=== PATIENT | male | born 1960 | race Two or more races ===

== ENCOUNTER 2024-01-19 12:46 | Inpatient (IN) | payer OTHER ==
[~2024-01-19] VITALS: Ht 175.3 cm; Wt 99.2 kg
[2024-01-19] MEDS: THIAMINE HCL 100 MG TAB PO ONE (13:00)
[2024-01-19] MEDS: MULTIPLE VITAMIN TAB PO ONE (13:00)
[2024-01-19] MEDS: ACETAMINOPHEN 325 MG TAB PO ONE (13:00)
[2024-01-19] MEDS: MECLIZINE HCL 25 MG TAB PO ONE (13:00)
[2024-01-19 13:52] LABS: Basophils # (auto) 0.1 10 ^3/uL (0-0.2); Basophils % (auto) 0.6 % (0.0-2.0); Eosinophils # (auto) 0.4 10 ^3/uL (0-0.8); Eosinophils % (auto) 4.4 % (0.0-7.0); Hematocrit 44.9 % (41.0-53.0); Hemoglobin 15.3 g/dL (13.5-17.5); Lymphocytes # (auto) 1.3 10 ^3/uL (0.4-5.4); Lymphocytes % (auto) 14.7 % (10.0-50.0); Mean Corpuscular Hemoglobin 29.7 pg (28.0-32.0); Mean Corpuscular Volume 87.1 fL (80.0-100.0); Monocytes # (auto) 0.7 10 ^3/uL (0-1.3); Monocytes % (auto) 7.5 % (0.0-12.0); Neutrophils # (auto) 6.6 10 ^3/uL (1.6-8.6); Neutrophils % (auto) 72.8 % (37.0-80.0); Red Blood Cells 5.16 10^6/uL (4.5-5.90); Red Cell Distribution Width 14.4 % (11.8-14.3); White Blood Cell 9.1 10^3/uL (4.4-10.8)
[2024-01-19 14:00] LABS: INR 1.06 (0.9-1.15); Prothrombin Time 11.2 sec (9.3-11.8)
[2024-01-19] MEDS: SUMAtriptan SUCCINATE 6 MG/0.5 ML VL SC ONE (14:08)
[2024-01-19 14:09] LABS: Alanine Aminotransferase 47 U/L (7-40); Albumin 4.4 g/dL (3.2-4.8); Alkaline Phosphatase 154 U/L (46-116); Anion Gap 7 (5-15); Aspartate Aminotransferase 39 U/L (13-40); BUN/Creatinine Ratio 10.5 (10.0-20.0); Blood Urea Nitrogen 16 mg/dL (9-23); Calcium 9.7 mg/dL (8.7-10.4); Carbon Dioxide 27 mmol/L (20-30); Chloride 103 mmol/L (98-107); Glucose 116 mg/dL (74-106); Magnesium 1.9 mg/dL (1.6-2.6); Potassium 3.3 mmol/L (3.5-5.1); Sodium 137 mmol/L (136-145)
[2024-01-19] MEDS: SODIUM CHLORIDE 0.9% 2,000 ML IV ONE (14:09)
[2024-01-19 14:10] LABS: Bilirubin, Total 0.5 mg/dL (0.2-1.0); Total Protein 7.7 g/dL (5.7-8.2)
[2024-01-19] MEDS: IOHEXOL 350 MG/ML 100ML IJ ONE (14:23)
[2024-01-19 14:28] VITALS: PULSE 65; RESP 18; O2SAT 98
[2024-01-19] MEDS: diphenhdrAMINE HCL 50 MG/1 ML VL IV ONE (14:30)
[2024-01-19 15:30] VITALS: O2SAT 95
[2024-01-19] MEDS: ONDANSETRON HCL 4 MG/2 ML VIAL IV ONE (15:34)
[2024-01-19] MEDS: METOCLOPRAMIDE HCL 5MG/ml INJ 2ml VIAL IV ONE (15:34)
[2024-01-19] MEDS: cloNIDine HCL 0.1 MG TAB PO ONE (15:36)
[2024-01-19] MEDS: hydrALAZINE HCL 20 MG/ML VL IV ONE (15:37)
[2024-01-19] MEDS: LORazepam 2MG/ML-1ML VIAL IV ONE (16:15)
[2024-01-19] MEDS ORDERED: ACETAMINOPHEN 325 MG TAB PO PRN (17:00)
[2024-01-19] MEDS ORDERED: ONDANSETRON HCL 4 MG/2 ML VIAL IV PRN (17:00)
[2024-01-19] MEDS ORDERED: NITROGLYCERIN 0.4 MG SL TAB SL PRN (17:00)
[2024-01-19] MEDS ORDERED: MORPHINE SULFATE INJ 2 MG/ml SYRG IV PRN (17:00)
[2024-01-19] MEDS ORDERED: HYDROmorphone HCL 2 MG/ML VL/or syr IV PRN (17:00)
[2024-01-19] MEDS: PANTOPRAZOLE 40 MG/10 ML VIAL INJ IV SCH (17:30)
[2024-01-19] MEDS: METOPROLOL TARTRATE 25 MG TAB PO SCH (18:31)
[2024-01-19] MEDS: FUROSEMIDE 40 MG/4 ML VIAL IV SCH (18:33)
[2024-01-19 20:00] VITALS: PULSE 80; RESP 23; O2SAT 100
[2024-01-19] MEDS: hydrALAZINE HCL 20 MG/ML VL IV PRN (20:32)
[2024-01-19 21:46] LABS: Urine Bacteria FEW /hpf (None Seen); Urine Blood Negative /uL (Negative); Urine Clarity Clear (Clear); Urine Color Yellow (Yellow); Urine Protein, UAD 2+ (Negative); Urine Specific Gravity 1.015 (1.001-1.035); Urine Sperm PRESENT /hpf (None Seen); Urine Urobilinogen 2 mg/dL (Negative); Urine WBC 1 /hpf (0 - 3)
[2024-01-19] MEDS: SODIUM CHLOR 0.9% PF (SALINE LOCK) 10ML VIAL/SYR IV SCH (22:05)
[2024-01-19] MEDS ORDERED: AZITHROMYCIN 500MG/ 250ML 250 ML IV ONE (23:15)
[2024-01-19] MEDS: methylPREDNISolone SOD SUCC 125 MG/2 ML VL IV ONE (23:28)
[2024-01-19 23:35] LABS: Base Excess 1.6 mmol/L (-2.0-2.0)
[2024-01-19] MEDS: IPRATROPIUM BROM 0.5 MG/2.5ML INH SOL NEB PRN (23:36)
[2024-01-19] MEDS: ALBUTEROL SULF 2.5 MG/0.5ML(0.5%) NEB SOLN NEB PRN (23:37)
[2024-01-19] MEDS: POTASSIUM CHL 20MEQ/100ML 100 ML IV ONE (23:49)
[2024-01-19 23:54] VITALS: O2SAT 99
[2024-01-19 23:55] VITALS: BP 112/74; PULSE 80; RESP 22; TEMP 97.5; O2SAT 99
[2024-01-20] MEDS: DOXYCYCLINE 100MG/250ML 250 ML IV SCH (07:07)
[2024-01-20 07:41] VITALS: O2SAT 94
[2024-01-20] MEDS ORDERED: AZITHROMYCIN 500MG/ 250ML 250 ML IV SCH (10:00)
[2024-01-20] MEDS: THIAMINE HCL 100 MG TAB PO SCH (10:00)
[2024-01-20] MEDS: FOLIC ACID 1 MG TAB PO SCH (10:00)
[2024-01-20] MEDS ORDERED: ENOXAPARIN SOD 40 MG/0.4 ML SYRINGE SC SCH (10:00)
[2024-01-20 10:39] LABS: Basophils # (auto) 0 10 ^3/uL (0-0.2); Basophils % (auto) 0.2 % (0.0-2.0); Eosinophils # (auto) 0 10 ^3/uL (0-0.8); Hematocrit 48.4 % (41.0-53.0); Hemoglobin 16.1 g/dL (13.5-17.5); Lymphocytes # (auto) 0.6 10 ^3/uL (0.4-5.4); Lymphocytes % (auto) 8.7 % (10.0-50.0); Mean Corpuscular Hemoglobin 29.6 pg (28.0-32.0); Mean Corpuscular Hgb Conc. 33.3 g/dL (32.0-36.0); Mean Corpuscular Volume 88.7 fL (80.0-100.0); Monocytes # (auto) 0.1 10 ^3/uL (0-1.3); Monocytes % (auto) 1.7 % (0.0-12.0); Neutrophils # (auto) 6.1 10 ^3/uL (1.6-8.6); Neutrophils % (auto) 89.4 % (37.0-80.0); Red Blood Cells 5.46 10^6/uL (4.5-5.90); Red Cell Distribution Width 14.8 % (11.8-14.3); White Blood Cell 6.8 10^3/uL (4.4-10.8)
[2024-01-20 11:19] LABS: Alanine Aminotransferase 42 U/L (7-40); Albumin 4.2 g/dL (3.2-4.8); Alkaline Phosphatase 154 U/L (46-116); Anion Gap 7 (5-15); Aspartate Aminotransferase 34 U/L (13-40); BUN/Creatinine Ratio 8.2 (10.0-20.0); Blood Urea Nitrogen 13 mg/dL (9-23); Calcium 9.3 mg/dL (8.7-10.4); Carbon Dioxide 26 mmol/L (20-30); Chloride 103 mmol/L (98-107); Cholesterol 167 mg/dL (< 200); Glucose 151 mg/dL (74-106); HDL Cholesterol 59 mg/dL (40-59); LDL Cholesterol 103 mg/dL (< 100); Magnesium 1.9 mg/dL (1.6-2.6); Potassium 3.8 mmol/L (3.5-5.1); Sodium 136 mmol/L (136-145); Triglycerides 40 mg/dL (< 150)
[2024-01-20 11:20] LABS: Bilirubin, Total 0.5 mg/dL (0.2-1.0); Phosphorus 3.6 mg/dL (2.4-5.1)
[2024-01-20 11:41] LABS: Total Protein 7.7 g/dL (5.7-8.2)
[2024-01-20 11:42] VITALS: O2SAT 93
[2024-01-20 12:23] LABS: Amphetamine Screen, Urine Pos (NEGATIVE)
[2024-01-20 12:24] LABS: Barbiturate Scree,Urine Neg (NEGATIVE); Benzodiazephine Screen, Urine Neg (NEGATIVE); Cannabinoid Screen, Urine Neg (NEGATIVE); Cocaine Screen, Urine Neg (NEGATIVE); Opiate Scree,Urine Neg (NEGATIVE); Phencyclidine Screen, Urine Neg (NEGATIVE)
[2024-01-20] MEDS ORDERED: THIAMINE 100mg/ml INJ (200mg/2ml VIAL) IV ONE (14:15)
[2024-01-20] MEDS: THIAMINE IV ONE (17:18)
[2024-01-20] MEDS: SODIUM CHL 0.9% IV ONE (17:18)
[2024-01-20 19:20] VITALS: BP 141/74; PULSE 85; RESP 19; TEMP 98.2; O2SAT 92
[2024-01-20] MEDS ORDERED: DOXA1TAB41 PO (19:51)
[2024-01-20] MEDS ORDERED: FINA5TAB4 PO (19:51)
[2024-01-20] MEDS ORDERED: OXY5T PO (19:51)
[2024-01-20 20:00] VITALS: PULSE 78; PULSE 88; RESP 20; O2SAT 95
[2024-01-20 20:59] VITALS: O2SAT 98
[2024-01-20] MEDS: methylPREDNISolone SOD SUCC 40 MG/ML VL IV SCH (21:53)
[2024-01-20 22:05] VITALS: BP 130/86; PULSE 88; RESP 20; TEMP 97.8; O2SAT 95
[2024-01-21] VITALS (10 sets, daily range): BP systolic 145–172; BP diastolic 74–105; PULSE 79–101; RESP 16–20; TEMP 97.9–98.6; O2SAT 92–98
[2024-01-21] MEDS: MULTIPLE VITAMIN TAB PO SCH (09:51)
[2024-01-21] MEDS: amLODIPine BESYLATE 5 MG TAB PO SCH (09:52)
[2024-01-21 10:16] LABS: Basophils # (auto) 0 10 ^3/uL (0-0.2); Basophils % (auto) 0.2 % (0.0-2.0); Eosinophils # (auto) 0 10 ^3/uL (0-0.8); Hematocrit 48.2 % (41.0-53.0); Hemoglobin 16.1 g/dL (13.5-17.5); Lymphocytes # (auto) 0.6 10 ^3/uL (0.4-5.4); Lymphocytes % (auto) 5.4 % (10.0-50.0); Mean Corpuscular Hemoglobin 29.1 pg (28.0-32.0); Mean Corpuscular Hgb Conc. 33.4 g/dL (32.0-36.0); Mean Corpuscular Volume 87.2 fL (80.0-100.0); Monocytes # (auto) 0.3 10 ^3/uL (0-1.3); Monocytes % (auto) 2.8 % (0.0-12.0); Neutrophils # (auto) 10.6 10 ^3/uL (1.6-8.6); Neutrophils % (auto) 91.6 % (37.0-80.0); Red Blood Cells 5.53 10^6/uL (4.5-5.90); Red Cell Distribution Width 14.5 % (11.8-14.3); White Blood Cell 11.6 10^3/uL (4.4-10.8)
[2024-01-21 10:31] LABS: Alanine Aminotransferase 34 U/L (7-40); Albumin 4.2 g/dL (3.2-4.8); Alkaline Phosphatase 140 U/L (46-116); Anion Gap 9 (5-15); Aspartate Aminotransferase 22 U/L (13-40); BUN/Creatinine Ratio 15.2 (10.0-20.0); Calcium 9.2 mg/dL (8.7-10.4); Carbon Dioxide 24 mmol/L (20-30); Chloride 101 mmol/L (98-107); Glucose 137 mg/dL (74-106); Potassium 3.6 mmol/L (3.5-5.1); Sodium 134 mmol/L (136-145)
[2024-01-21 10:32] LABS: Bilirubin, Total 0.7 mg/dL (0.2-1.0); Total Protein 7.5 g/dL (5.7-8.2)
[2024-01-21 10:33] LABS: Blood Urea Nitrogen 27 mg/dL (9-23)
[2024-01-22] VITALS (14 sets, daily range): BP systolic 149–181; BP diastolic 75–114; PULSE 69–92; RESP 16–20; TEMP 97.4–98.5; O2SAT 91–98
[2024-01-22 07:00] LABS: Basophils # (auto) 0 10 ^3/uL (0-0.2); Basophils % (auto) 0.1 % (0.0-2.0); Eosinophils # (auto) 0 10 ^3/uL (0-0.8); Hematocrit 48.8 % (41.0-53.0); Hemoglobin 16.4 g/dL (13.5-17.5); Lymphocytes # (auto) 0.7 10 ^3/uL (0.4-5.4); Lymphocytes % (auto) 5.7 % (10.0-50.0); Mean Corpuscular Hemoglobin 29.2 pg (28.0-32.0); Mean Corpuscular Hgb Conc. 33.6 g/dL (32.0-36.0); Mean Corpuscular Volume 86.9 fL (80.0-100.0); Monocytes # (auto) 0.7 10 ^3/uL (0-1.3); Monocytes % (auto) 5.3 % (0.0-12.0); Neutrophils # (auto) 10.9 10 ^3/uL (1.6-8.6); Neutrophils % (auto) 88.9 % (37.0-80.0); Nucleated Red Blood Cells % 0.1 %; Red Blood Cells 5.61 10^6/uL (4.5-5.90); Red Cell Distribution Width 14.5 % (11.8-14.3); White Blood Cell 12.2 10^3/uL (4.4-10.8)
[2024-01-22 07:20] LABS: Alanine Aminotransferase 28 U/L (7-40); Alkaline Phosphatase 133 U/L (46-116); Calcium 9.4 mg/dL (8.7-10.4); Carbon Dioxide 23 mmol/L (20-30); Chloride 100 mmol/L (98-107); Glucose 127 mg/dL (74-106); Potassium 3.7 mmol/L (3.5-5.1)
[2024-01-22 07:21] LABS: Anion Gap 10 (5-15); Aspartate Aminotransferase 19 U/L (13-40); BUN/Creatinine Ratio 19.7 (10.0-20.0); Bilirubin, Total 0.5 mg/dL (0.2-1.0); Blood Urea Nitrogen 35 mg/dL (9-23); Magnesium 1.9 mg/dL (1.6-2.6); Phosphorus 2.3 mg/dL (2.4-5.1); Sodium 133 mmol/L (136-145); Total Protein 7.2 g/dL (5.7-8.2)
[2024-01-22] MEDS: amLODIPine BESYLATE 5 MG TAB PO SCH (09:54)
[2024-01-22] MEDS: HYDROcodone-ACET 5/325MG TAB PO PRN (09:55)
[2024-01-22] MEDS: FUROSEMIDE 40 MG/4 ML VIAL IV SCH (09:57)
[2024-01-22] MEDS: FINASTERIDE 5 MG TAB PO SCH (14:07)
[2024-01-22] MEDS: DOXAZOSIN MESYL 2 MG TAB PO SCH (14:09)
[2024-01-22] MEDS: DOCUSATE SOD 100 MG CAP PO PRN (16:53)
[2024-01-22] MEDS: LABETALOL HCL 20 MG/4 ML VL IV PRN (17:53)
[2024-01-22] MEDS: hydrALAZINE HCL 25 MG TAB PO SCH (21:58)
[2024-01-23] VITALS (8 sets, daily range): BP systolic 129–154; BP diastolic 85–99; PULSE 70–79; RESP 16–20; TEMP 97.8–98.8; O2SAT 94–96
[2024-01-23 06:00] LABS: Anion Gap 8 (5-15); Basophils # (auto) 0 10 ^3/uL (0-0.2); Basophils % (auto) 0.2 % (0.0-2.0); Carbon Dioxide 24 mmol/L (20-30); Chloride 104 mmol/L (98-107); Eosinophils # (auto) 0 10 ^3/uL (0-0.8); Hematocrit 46.2 % (41.0-53.0); Hemoglobin 15.5 g/dL (13.5-17.5); Lymphocytes # (auto) 1.2 10 ^3/uL (0.4-5.4); Lymphocytes % (auto) 7.8 % (10.0-50.0); Mean Corpuscular Hemoglobin 29.3 pg (28.0-32.0); Mean Corpuscular Hgb Conc. 33.6 g/dL (32.0-36.0); Mean Corpuscular Volume 87.3 fL (80.0-100.0); Monocytes # (auto) 1.5 10 ^3/uL (0-1.3); Monocytes % (auto) 9.7 % (0.0-12.0); Neutrophils # (auto) 12.9 10 ^3/uL (1.6-8.6); Neutrophils % (auto) 82.3 % (37.0-80.0); Nucleated Red Blood Cells % 0.1 %; Potassium 3.5 mmol/L (3.5-5.1); Red Blood Cells 5.29 10^6/uL (4.5-5.90); Red Cell Distribution Width 14.6 % (11.8-14.3); Sodium 136 mmol/L (136-145); White Blood Cell 15.7 10^3/uL (4.4-10.8)
[2024-01-23 06:06] LABS: BUN/Creatinine Ratio 20.7 (10.0-20.0); Blood Urea Nitrogen 34 mg/dL (9-23); Glucose 111 mg/dL (74-106)
[2024-01-23 06:09] LABS: Phosphorus 3.1 mg/dL (2.4-5.1)
[2024-01-23] MEDS: methylPREDNISolone SOD SUCC 40 MG/ML VL IV SCH (08:38)
[2024-01-23] MEDS ORDERED: FURO1TAB31 PO (12:36)
[2024-01-23] MEDS ORDERED: DOXY-447 PO (12:36)
[2024-01-23] MEDS ORDERED: AMLO1TAB23 PO (12:36)
[2024-01-23] MEDS ORDERED: HYDR50TA47 PO (12:36)
[2024-01-23] MEDS ORDERED: ALBUAER3 IN (12:36)
[2024-01-23] MEDS ORDERED: TAMS-35 PO (12:36)
[2024-01-23] MEDS ORDERED: METO-158 PO (12:36)
[2024-01-23] MEDS ORDERED: LOSARTAN POTASSIUM 25 MG TAB PO ONE (15:30)
[2024-01-23] MEDS ORDERED: TAMSULOSIN HYDROCHLORIDE 0.4 MG CAP PO SCH (18:00)
[2024-01-24] MEDS ORDERED: LOSARTAN POTASSIUM 25 MG TAB PO SCH (10:00)
[2024-01-24] MEDS ORDERED: FUROSEMIDE 40 MG TAB PO SCH (10:00)
== END 2024-01-23 16:30 | disposition home or self-care (01) | DRG 871 ==
LOC: EDBD 12:46 → ER 12:46 → TELE 16:58 → TELE-WESTW 01-20 18:13
PROVIDERS: ADMIT Internal Medicine; ATTEND Family Medicine
DX: A41.9 Sepsis, unspecified organism (principal); I21.A1 Myocardial infarction type 2; J18.9 Pneumonia, unspecified organism; J96.01 Acute respiratory failure with hypoxia; I50.23 Acute on chronic systolic (congestive) heart failure; I16.1 Hypertensive emergency; N17.9 Acute kidney failure, unspecified; N13.30 Unspecified hydronephrosis; J44.1 Chronic obstructive pulmonary disease with (acute) exacerbation; J44.0 Chronic obstructive pulmonary disease with (acute) lower respiratory infection; I13.0 Hypertensive heart and chronic kidney disease with heart failure and stage 1 through stage 4 chronic kidney disease, or unspecified chronic kidney disease; E66.9 Obesity, unspecified; E87.6 Hypokalemia; F10.129 Alcohol abuse with intoxication, unspecified; N18.9 Chronic kidney disease, unspecified; N40.1 Benign prostatic hyperplasia with lower urinary tract symptoms; R33.8 Other retention of urine; R74.01 Elevation of levels of liver transaminase levels; G89.29 Other chronic pain; F15.10 Other stimulant abuse, uncomplicated; Z79.899 Other long term (current) drug therapy; Z68.32 Body mass index [BMI] 32.0-32.9, adult; Y90.9 Presence of alcohol in blood, level not specified
CPT/HCPCS: 36415; 36600; 70450; 71045; 74176; 76775; 80048; 80053; 80061; 80307; 80320; 81001; 82088; 82140; 82306; 82607; 82805; 82962; 83036; 83735; 83880; 83930; 84100; 84443; 84484; 85025; 85610; 85730; 87340; 92610; 93005; 93306; 94640; G0378; J2405; J2470; J3480; J3490